=== PATIENT | male | born 1995 | race African-American/Black ===

== ENCOUNTER 2017-01-19 13:15 | Emergency (ER) | payer SELFPAY ==
[~2017-01-19] VITALS: Ht 190.5 cm; Wt 93.2 kg
[2017-01-19 13:22] VITALS: BP 148/86
== END 2017-01-19 16:29 | disposition left against medical advice (07) ==
LOC: EMS 13:17
DX: Z53.21 Procedure and treatment not carried out due to patient leaving prior to being seen by health care provider (principal)

== ENCOUNTER 2018-07-31 17:53 | Emergency (ER) | payer MEDICAID | END 2018-07-31 18:49 | disposition left against medical advice (07) | LOC: EMS 17:55 | DX: S01.312A Laceration without foreign body of left ear, initial encounter (principal); W45.8XXA Other foreign body or object entering through skin, initial encounter; Y93.89 Activity, other specified; Y92.89 Other specified places as the place of occurrence of the external cause; Y99.8 Other external cause status; Z53.21 Procedure and treatment not carried out due to patient leaving prior to being seen by health care provider ==